=== PATIENT | female | born 1990 | race Hispanic/Latino ===

== ENCOUNTER 2018-01-07 02:20 | Emergency (ER) | payer OTHER, BC ==
[2018-01-07 02:57] VITALS: BP 109/75; PULSE 87; RESP 18; TEMP 97.8; O2SAT 98
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
== END 2018-01-07 05:43 | disposition home or self-care (01) ==
LOC: H.ER 02:20
DX: S09.90XA Unspecified injury of head, initial encounter (principal); V43.62XA Car passenger injured in collision with other type car in traffic accident, initial encounter; Y92.410 Unspecified street and highway as the place of occurrence of the external cause; Z88.0 Allergy status to penicillin